=== PATIENT | female | born 1955 | race Caucasian/White ===

== ENCOUNTER 2023-05-11 08:24 | Emergency (ER) | payer OTHER ==
[~2023-05-11] VITALS: Ht 160 cm; Wt 82.6 kg
[2023-05-11 08:39] VITALS: BP_SYST 113; PULSE 57; RESP 18; TEMP 98.3; O2SAT 93
[2023-05-11] MEDS ORDERED: MORPHINE 4 MG INJ. 4 MG/ML VIAL IM ONE ×2 (08:45→10:45)
[2023-05-11] MEDS ORDERED: TRAM50TA2 PO (10:31)
[2023-05-11] MEDS ORDERED: IBUP-1969 PO (10:31)
[2023-05-11 12:57] VITALS: BP_SYST 128; PULSE 64; RESP 15; TEMP 97.2; O2SAT 95
== END 2023-05-11 11:30 | disposition home or self-care (01) ==
LOC: SED 08:24
DX: G89.29 Other chronic pain (principal); M54.2 Cervicalgia; Z79.899 Other long term (current) drug therapy
CPT/HCPCS: 99285; 72125; 76376; 96372; J2270